=== PATIENT | female | born 1960 | race African-American/Black ===

== ENCOUNTER → 2021-02-28 | Outpatient (CLI) | payer MEDICAID ==
--- NOTE | 2021-02-28 17:35 | RAD ---
EXAM: Lumbar spine, 3 views. HISTORY: Pain. COMPARISON: None. FINDINGS: 3 views of the lumbar spine are obtained. There is grade 1 anterolisthesis of L4 on L5, dileep suring 4 mm. There is grade 1 anterolisthesis of L2 on L3 and L3 on L4, measuring 2 mm. There is slig ht retrolisthesis of L5 on S1. There is severe degenerative endplate remodeling with disc space narro wing and facet arthropathy at the lumbosacral junction. There is also slight disc space narrowing and vacuum phenomenon at L4-L5. There is endplate remodeling at the remainder of the lumbar levels. IMPRESSION: 1. Degenerative change primarily at L5-S1. 2. Mild multilevel listhesis. Electronically signed by: Kimberly Lowery MD (02/28/2021 5:33 PM) [facility]
--- NOTE | 2021-03-01 11:16 | RAD ---
XR KNEE_RT 1-2 VIEWS History: Reason: KNEE AND BACK PAIN / Spl. Instructions: / History: Technique: 2 views right knee Comparison: December 26, 2016 Findings: Right total knee arthroplasty. No fracture. Genu varus alignment, increased compared to prior. No sig nificant knee joint effusion. Impression: 1. Right total knee arthroplasty with increased genu varus alignment. Electronically signed by: Colton Rome DO (03/01/2021 11:14 AM) [id number]
== END ==
LOC: RAD 14:46
PROVIDERS: ATTEND Family Medicine
DX: M47.817 Spondylosis without myelopathy or radiculopathy, lumbosacral region (principal); M43.17 Spondylolisthesis, lumbosacral region; M48.07 Spinal stenosis, lumbosacral region; M21.161 Varus deformity, not elsewhere classified, right knee; Z96.651 Presence of right artificial knee joint
CPT/HCPCS: 72100; 73560